=== PATIENT | male | born 1970 | race Two or more races ===

== ENCOUNTER 2020-11-12 15:45 | Emergency (ER) | payer MEDICAID, OTHER ==
[~2020-11-12] VITALS: Ht 177.8 cm; Wt 104.3 kg
[2020-11-12 16:00] VITALS: BP 133/75
== END 2020-11-12 20:25 | disposition left against medical advice (07) ==
LOC: EDBD 15:45 → ER 15:45
DX: S90.01XA Contusion of right ankle, initial encounter (principal); Y04.2XXA Assault by strike against or bumped into by another person, initial encounter; Y93.89 Activity, other specified; Y92.89 Other specified places as the place of occurrence of the external cause; Y99.8 Other external cause status
CPT/HCPCS: 73610

== ENCOUNTER → 2021-05-29 | Emergency (ER) | payer MEDICAID ==
[~2021-05-29] VITALS: Ht 177.8 cm; Wt 95.3 kg
[2021-05-29 13:19] VITALS: BP 128/92
== END | disposition home or self-care (01) ==
LOC: ER 13:18
DX: R06.02 Shortness of breath (principal); R09.02 Hypoxemia; Z20.822 Contact with and (suspected) exposure to COVID-19
CPT/HCPCS: 36415; 71046; 87426